=== PATIENT | female | born 1950 ===

== ENCOUNTER → 2022-04-12 | Day surgery (SDC) | payer OTHER | END | disposition home or self-care (01) | LOC: ADM 04-10 12:15 → AMB-ENDOS 05:41 | PROVIDERS: ATTEND Surgery | DX: D12.0 Benign neoplasm of cecum (principal); Z86.010 Personal history of colon polyps; Z20.822 Contact with and (suspected) exposure to COVID-19; E03.9 Hypothyroidism, unspecified; E78.5 Hyperlipidemia, unspecified ==